=== PATIENT | female | born 1955 | race Two or more races ===

== ENCOUNTER 2023-03-24 07:47 | Outpatient (CLI) | payer OTHER | END 2023-03-24 07:48 | disposition home or self-care (01) | LOC: NUCLEAR 07:47 | PROVIDERS: ATTEND Internal Medicine | DX: I25.118 Atherosclerotic heart disease of native coronary artery with other forms of angina pectoris (principal); I11.9 Hypertensive heart disease without heart failure; E78.2 Mixed hyperlipidemia | CPT/HCPCS: 78452; 93017; A9500 ==